=== PATIENT | male | born 1950 | race Caucasian/White ===

== ENCOUNTER → 2023-10-17 08:32 | Outpatient (REF) | payer BC, SELFPAY ==
[2023-10-17 11:51] LABS: ALT (SGPT) 42 U/L (0-50); AST (SGOT) 41 U/L (17-59); Blood Urea Nitrogen 16 mg/dl (9-20); Calcium 9.2 mg/dl (8.4-10.2); Carbon Dioxide 26 mmol/L (22-30); Chloride 100 mmol/L (98-107); Glucose 120 mg/dl (70-99); HDL Cholesterol 46 mg/dl; LDL Cholesterol, Calculated 46 mg/dl; Phosphorus 4.2 mg/dl (2.5-4.5); Potassium 4.3 mmol/L (3.5-5.1); Sodium 138 mmol/L (135-145); Total Cholesterol 106 mg/dl (50-199); Triglyceride 74 mg/dl (10-149); Very Low Density Lipoprotein 14 mg/dl (0-30); eGFR > 60.00
== END ==
LOC: HWLAB 08:32
PROVIDERS: ATTENDING PHYSICIAN Internal Medicine Cardiovascular Disease; FAMILY PHYSICIAN Family Medicine
DX: I10 Essential (primary) hypertension (principal); I73.9 Peripheral vascular disease, unspecified; I65.22 Occlusion and stenosis of left carotid artery
CPT/HCPCS: 36415; 80061; 80069; 84450; 84460

== ENCOUNTER → 2024-02-26 12:26 | Outpatient (REF) | payer BC, SELFPAY | LOC: RAD 12:26 | PROVIDERS: ATTENDING PHYSICIAN Surgery Vascular Surgery; FAMILY PHYSICIAN Family Medicine | DX: I71.40 Abdominal aortic aneurysm, without rupture, unspecified (principal); I73.9 Peripheral vascular disease, unspecified; I77.9 Disorder of arteries and arterioles, unspecified | CPT/HCPCS: 76770; 93880; 93922; 93925 ==

== ENCOUNTER → 2024-03-12 14:05 | Outpatient (REF) | payer BC, SELFPAY ==
[2024-03-14 10:38] LABS: Blood Urea Nitrogen 16 mg/dl (9-20); Calcium 9.6 mg/dl (8.4-10.2); Carbon Dioxide 25 mmol/L (22-30); Chloride 104 mmol/L (98-107); Glucose 109 mg/dl (70-99); Potassium 4.5 mmol/L (3.5-5.1); Sodium 137 mmol/L (135-145); eGFR > 60.00
== END ==
LOC: REG 14:05
PROVIDERS: ATTENDING PHYSICIAN Registered Nurse; FAMILY PHYSICIAN Family Medicine
DX: I71.40 Abdominal aortic aneurysm, without rupture, unspecified (principal); I73.9 Peripheral vascular disease, unspecified
CPT/HCPCS: 80048

== ENCOUNTER → 2024-03-19 10:35 | Outpatient (REF) | payer BC, SELFPAY | LOC: HWRAD 10:35 | PROVIDERS: ATTENDING PHYSICIAN Registered Nurse; FAMILY PHYSICIAN Family Medicine | DX: I71.40 Abdominal aortic aneurysm, without rupture, unspecified (principal); I73.9 Peripheral vascular disease, unspecified | CPT/HCPCS: 75635; Q9967 ==

== ENCOUNTER → 2024-04-16 11:30 | Outpatient (REF) | payer BC, SELFPAY | LOC: DHCBC/DCA 11:30 | PROVIDERS: ATTENDING PHYSICIAN Internal Medicine; FAMILY PHYSICIAN Student in an Organized Health Care Education/Training Program | DX: I10 Essential (primary) hypertension (principal); I73.9 Peripheral vascular disease, unspecified; I65.22 Occlusion and stenosis of left carotid artery; I71.43 Infrarenal abdominal aortic aneurysm, without rupture | CPT/HCPCS: 78452; 93017; A9500; J2785 ==

== ENCOUNTER → 2024-04-23 10:03 | Outpatient (REF) | payer BC, MEDICARE, SELFPAY | LOC: HWRCS 10:03 | PROVIDERS: ATTENDING PHYSICIAN Internal Medicine; FAMILY PHYSICIAN Family Medicine | DX: I10 Essential (primary) hypertension (principal); I73.9 Peripheral vascular disease, unspecified; I65.22 Occlusion and stenosis of left carotid artery; I71.43 Infrarenal abdominal aortic aneurysm, without rupture; Z01.10 Encounter for examination of ears and hearing without abnormal findings | CPT/HCPCS: 93306 ==

== ENCOUNTER 2024-05-09 08:01 | Inpatient (IN) | payer BC, MEDICARE, SELFPAY ==
[2024-05-06 09:12] VITALS: BMI 32.2
[2024-05-06 09:46] LABS: % Basophils 1.2 % (0-2); % Eosinophils 1.9 % (0-6); % Immature Granulocytes 0.3 % (0-0.5); % Monocytes 11.5 % (1.7-9.3); % Neutrophils 64.1 % (42.2-75.2); Absolute Basophils 0.1 10^3/uL (0-0.2); Absolute Eosinophils 0.1 10^3/uL (0-0.7); Absolute Lymphocytes 1.2 10^3/uL (1.2-3.4); Absolute Monocytes 0.7 10^3/uL (0.1-0.6); Absolute Neutrophils 3.8 10^3/uL (1.4-6.5); Hematocrit 40.6 % (39.0-52.0); Hemoglobin 13.9 g/dL (13.0-18.0); Mean Corp Hgb Conc. 34.2 g/dL (33.0-37.0); Mean Corpuscular Hgb 31.6 pg (27.0-31.0); Mean Corpuscular Volume 92.3 fL (80.0-94.0); Mean Platelet Volume 9.9 fL (7.4-10.4); Nucleated Red Blood Cells % 0 % (-); Platelet Count 248 10^3/uL (130-400); Red Cell Dist. Width 12.5 % (11.5-14.5); White Blood Cell Count 5.9 10^3/uL (4.8-10.8)
[2024-05-06 10:03] LABS: INR 1.05; PT 13.5 Sec (11.4-14.6)
[2024-05-06 10:04] LABS: APTT 35.7 Sec (23.4-35.0)
[2024-05-06 10:11] LABS: Blood Urea Nitrogen 12 mg/dl (9-20); Calcium 9.5 mg/dl (8.4-10.2); Carbon Dioxide 27 mmol/L (22-30); Chloride 99 mmol/L (98-107); Estimated Creatinine Clearance 79 ml/min; Glucose 116 mg/dl (70-99); Potassium 5.3 mmol/L (3.5-5.1); Sodium 139 mmol/L (135-145); eGFR > 60.00
[2024-05-09] VITALS (39 sets, daily range): BP systolic 112–180; BP diastolic 62–120; BMI 32.1
[2024-05-09] MEDS: PERIDEX 0.12% ORAL RINSE 15 ML PO (08:56)
[2024-05-09] MEDS: BACTROBAN NASAL 1 GRAM NASAL (08:56)
[2024-05-09] MEDS: NSS 315 IV (08:59)
--- NOTE | 2024-05-09 10:39 | W.SUR.PREOP ---
Pre-Operative Surgical Note
-
I have examined this patient prior to the performance of the scheduled procedure.
The patient's condition is unchanged from the time of the current History and
Physical and the patient is able to undergo the scheduled procedure.
[2024-05-09 12:03] LABS: ACT-LR - POC 311 Seconds (116-155)
[2024-05-09 13:02] LABS: ACT-LR - POC 239 Seconds (116-155)
--- NOTE | 2024-05-09 14:04 | W.SUR.POST ---
Surgical Immediate Post Op
Note
Pre Op Diagnosis: Abdominal aortic aneurysm
Post Op Diagnosis: Abdominal aortic aneurysm
Procedure Performed: EVAR + angioplasty + external iliac stent
Primary Surgeon: Onesimo Waddell MD
Secondary Surgeons: Dov Spaulding MD, PhD
Anesthesia: Per Anesthesia
Estimated Blood Loss: 50 cc
Fluids: Per Anesthesia
Drains/Shunts: Nonme
Specimens/Cultures: None
Doppler/Duplex/Angio (Y/N): Multiple angios
Complications: None
Operative Findings: Bilateral groin access, shockwave angioplasty to bilateral external iliacs, EVAR, bare metal stent to left external iliac, bilateral perc closure.
[2024-05-09 14:32] LABS: INR 1.15; PT 14.5 Sec (11.4-14.6)
[2024-05-09 14:33] LABS: APTT 39.3 Sec (23.4-35.0)
[2024-05-09 14:43] LABS: Blood Urea Nitrogen 15 mg/dl (9-20); Calcium 8.2 mg/dl (8.4-10.2); Carbon Dioxide 25 mmol/L (22-30); Chloride 103 mmol/L (98-107); Estimated Creatinine Clearance 98 ml/min; Glucose 114 mg/dl (70-99); Potassium 4.7 mmol/L (3.5-5.1); Sodium 136 mmol/L (135-145); eGFR > 60.00
[2024-05-09] MEDS: CARDENE 200 IV (14:57)
[2024-05-09] MEDS: PLAVIX 300 MG PO (14:57)
[2024-05-09] MEDS: NSS 1000 IV (14:57)
--- NOTE | 2024-05-09 15:07 | OR.RPT ---
Operative Report
Operative Report
Date of Operation: 05/09/2024
Pre Op Diagnosis: Infrarenal abdominal aortic aneurysm and associated calcified iliac occlusive disease bilaterally.
Post Op Diagnosis: Infrarenal abdominal aortic aneurysm and associated calcified iliac occlusive disease bilaterally.
Procedure:
1.) Endovascular aortic aneurysm repair using Endologix AFX device:
AFX main body 25�100/16�40
AFX suprarenal extension 28�75
2.) Intravascular lithotripsy to bilateral common iliac arteries and external iliac arteries (bilateral 10 mm x 30 mm L6 shockwave balloons)
3.) Balloon Angioplasty and Stenting of Left external iliac artery (9 mm x 57 mm express LD)
4.) Introduce wire and catheter to aorta from bilateral femoral artery access
5.) Ultrasound-Guided percutaneous access to the bilateral common femoral arteries
6.) Bilateral Pro-glide closure devices to the bilateral femoral arteries
Surgeon: Onesimo Waddell III, MD
Textile Worker: Dov Spaulding MD PhD PGY-6
Anesthesia: General
Complications: None
Estimated Blood Loss: 50 cc
History and Indications for Procedure: 73-year-old male with large infrarenal abdominal aortic aneurysm and associated calcified iliac occlusive disease.
Procedure in Detail: Wojciech Dominguez was correctly identified and placed supine on the operating table. After adequate induction of anesthesia the abdomen, pelvis and bilateral groins were positioned, prepped and draped in the usual sterile fashion.
Preoperative antibiotics were administered. A timeout procedure was performed with the nursing and anesthesia staff confirming the patients identity as well as the nature and laterality of the procedure.
Under ultrasound guidance, bilateral femoral artery sheath access was obtained. The arteries were patent. Ultrasound images of the femoral arteries were saved to the medical record. An 8 Fr sheath was placed into the right femoral access. A 7 Fr
sheath was placed into the left femoral access. The patient was systemically heparinized.
We obtained bilateral wire access to the abdominal aorta and then exchanged out for bilateral 0.018 wires. Due to the heavily calcified nature of the iliac arterial disease and in an effort to modify the calcium to achieve maximum luminal gain with
endovascular intervention I elected to proceed with intravascular lithotripsy. Bilateral 10 mm x 30 mm L6 shockwave balloon balloons were placed across the common iliac stenoses under roadmap guidance. Alternating rounds of lithotripsy pulse
delivery at sub-nominal pressure and angioplasty at nominal pressure was performed bilaterally across the stenoses. The bilateral common iliac arteries, iliac bifurcations and i external iliac arteries were treated with this technique. In between
rounds of pulse delivery and angioplasty the balloon was deflated and repositioned under roadmap guidance. All 300 pulses were delivered from each catheter.
Following this, an arteriogram demonstrated an excellent technical result with significant improvement in the common and external iliac arteries bilaterally compared to pretreatment. I exchanged the right 0.018 wire out for a Bentson wire. A
pre-close technique was then performed on the right femoral artery access with 2 offset Proglide closure devices. The sutures were secured and tucked under surgical towels for use at the end of the case. The 8 [place] sheath was replaced.
From the right femoral access an KMP catheter and Bentson wire were advanced to the proximal descending thoracic aorta. The wire was exchanged out through the KMP catheter for a Lunderquist wire. Over the Lunderquist wire in the right femoral access
I placed the AFX introducer sheath and advanced the radio-opaque sheath tip to the abdominal aorta. This advanced through the iliac system without any resistance. An En-Snare catheter was placed over a Bentson wire from the left femoral access and
advanced to the aortic bifurcation. The En-Snare was then advanced through to the catheter tip.
The contralateral limb wire of the AFX2 main body was introduced through the introducer sheath and advanced to the aortic bifurcation. The 25-100/16-40 AFX2 bifurcated main body was then loaded onto the Lunderquist wire and advanced through the
introducer sheath. The wire was snared from the contralateral side and pulled out the left femoral access and the AFX2 main body was advanced until the limbs were above the aortic bifurcation. The entire system was then pulled down onto the aortic
bifurcation. The main body was then deployed by pulling the control cord.
The contralateral limb was then deployed by pulling the yellow limb cover. Once this was completed I advanced a pigtail catheter over the contralateral limb wire until the tip was in contact with the wire lock. The contralateral limb was then pulled
as I advanced the pigtail up to release it from the wire lock. The wire was removed and the formed pigtail catheter was then advanced proximally.
The ipsilateral limb was deployed by pinning the inner core and retracting the AFX introducer sheath.
Through the introducer sheath I advanced a 28�75 supra renal endograft extension and performed an arteriogram to clearly visualize the renal arteries. The stent was positioned appropriately below the renal arteries and deployed under roadmap
guidance in the desired location.
The delivery system was removed. A Coda balloon was introduced and used to profile the proximal and distal seal zones as well as all areas of overlap. A 10 mm x 40 mm angioplasty balloon was used to profile the left iliac limb.
A retrograde sheath arteriogram was performed on the left to visualize the distal [place] iliac system. There was residual calcified disease at the iliac bifurcation and proximal to mid left external iliac artery. I treated this with a 9 mm x 57 mm
express LD stent with an excellent result.
A completion aortogram demonstrated an excellent technical result. The aneurysm was excluded. No endoleaks were seen. There was brisk flow through the stent and iliac limbs. The renal arteries were widely patent bilaterally. The iliac bifurcations
were preserved bilaterally.
Satisfied with this result we then concluded the procedure. A single Pro-glide closure device was utilized for the left femoral artery access. The Proglide sutures were secured bilaterally after removing the sheaths and wires. Protamine was
administered. Additional pressure was applied to the puncture sites bilaterally for 10 minutes. Hemostasis was achieved bilaterally.
Sterile dressings were applied.
The patient tolerated the procedure well and was taken to the PACU in stable condition.
Attestation: I was present and responsible for the entire procedure
Signed:
Onesimo Waddell III, MD
[facility] Vascular Surgery
[phone] (cell)
--- NOTE | 2024-05-09 15:50 | CON.INTV ---
Consultation
Consultation Request
Date/Time Consultation Requested: 05/09/2024
Date/Time Consultation Performed: 05/09/2024
Requesting Provider: Dr. Waddell
Performing Provider: Dr. Cuong Landis
Reason for Consultation: Status post EVAR, angioplasty plus external iliac stent
Medical History
-
History of Present Illness:
73-year-old man with history of atrial flutter status post ablation, history of lung cancer, abdominal aortic aneurysm, peripheral vascular disease, bilateral carotid disease who follows up with Dr. Waddell in the outpatient setting. Admitted to the
hospital for intervention of these enlarging aortic aneurysm. Admitted on 05/09/2024 and underwent EVAR also revascularization of the lower extremity.
Currently in the critical care unit. Stable hemodynamically
Pain is relatively controlled
Denies shortness of breath.
Outpatient records reviewed
Past Medical History
Past Medical History: Other (See assessment and plan)
Social History
Tobacco: Former Smoker ( quit in 2017)
Alcohol: Occasional
Drug: None
Personal:
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
Family History
Family History: Reviewed & Not Pertinent
Allergies / Home Medications
Allergies
Allergy/AdvReac Type Severity Reaction Status Date / Time
No Known Allergies Allergy Verified 05/09/24 09:01
Home Medications
�Medication �Instructions �Recorded �Confirmed �Last Taken �Type
aspirin 81 mg tablet,delayed 81 mg PO DAILY 11/02/20 05/09/24 05/09/24 07:30 History
release
metoprolol tartrate 25 mg tablet 12.5 mg PO BID 11/02/20 05/09/24 05/09/24 07:30 History
rosuvastatin 20 mg tablet 20 mg PO DAILY 11/02/20 05/09/24 05/08/24 10:00 History
ezetimibe 10 mg tablet 10 mg PO DAILY 04/30/24 05/09/24 05/08/24 10:00 History
Review of Systems
-
History Source: Patient
All other systems: Negative unless noted
Vitals / Labs / Diagnostic Testing
Vital Signs
Temp Pulse Resp BP Pulse Ox
97.0 F 80 16 141/75 96
05/09/24 14:00 05/09/24 15:26 05/09/24 15:26 05/09/24 15:26 05/09/24 15:10
Lab Data
05/09/24 14:11
Laboratory Results
05/09/24
14:11
PT 14.5
INR 1.15
APTT 39.3 H
Microbiology
05/06/24 09:22 Nose MRSA Screen - Final
No Methicillin Resistant Staphylococcus aureus isolated.
Diagnostic Testing:
Physical Exam
-
HEENT: Normocephalic
Cardiovascular: S1/S2
Respiratory: Clear and Non-Labored Respirations
GI: Soft and Non Distended
Neurology: Awake, Alert and No Motor Deficits
Skin: Warm and Other (Bilateral extremities are warm. Incision intact. No hematoma.)
General: Comfortable
Assessment
-
Status post EVAR-05/09/[address] Waddell
Intravascular lithotripsy to bilateral common iliac arteries and external iliac arteries
Balloon angioplasty and stent of left next internal iliac artery
Conditions present prior admission:
Atrial flutter status post ablation 2014
History of lung cancer
Abdominal aortic aneurysm
Peripheral arterial disease
Bilateral carotid artery disease
Left lower lobe lobectomy 2017
Assessment and plan:
Postoperative surgical intensive care unit monitoring
Supplemental oxygen as needed
Incentive spirometry
Aspiration precautions
Nebulizers if needed-currently not bronchospastic
Chest x-ray 05/06/2020 reviewed-no acute abnormalities of the chest
Neuro and vascular checks per protocol
Analgesia with narcotics, watch respiratory status closely
Vascular surgery following-correspondence and operative notes reviewed
Antiplatelet
Statin
Monitor blood pressure
Restart outpatient medication
Nicardipine as needed per protocol
Follow hemoglobin
Follow blood sugars
Insulin supplementation as needed
DVT prophylaxis-heparin subcu
Early nutrition-advance diet as tolerated
Early mobilization
--- NOTE | 2024-05-09 16:45 | PTCARENOTE ---
Received pt from PACU into ICU rm [id number] @ 1530. Drowsy, awakens to verbal stimuli, oriented x3. Neurovascular checks Q1H- see flow sheet. B/L LE pink/warm/+cap refill; sensation/movement intact; no tense edema/pain. L groin w 2x2 and tegaderm,
dressing c/d/i; site slightly swollen/tissue soft/no hematoma. R groin puncture site approximated w surgical adhesive, LITERACY TUTOR. SR w 1st degree AVB on monitor. SpO2 97% on 2LNC. Afebrile. +BS, abd soft/round/obese. Waddell catheter in place. Pt.
reported discomfort w catheter; catheter noted to be leaking. Balloon deflated/reinflated easily and catheter manipulated w sterile technique. Leaking from catheter remained. Vascular [facility] ALL SOURCE INTELLIGENCEMary, notified. # 18 R AC w NSS @ 80mL/hr and
Cardene gtt- see flow sheet. Pt. to lay flat until 1730, then HOB <30 degrees; bedrest overnight. Pt. updated on plan of care, verbalizes understanding. Instructed on how to report care concerns and call millard placed w in reach.
[2024-05-09] MEDS: PROTONIX 40 MG PO (17:48)
[2024-05-09] MEDS: HEPARIN 5000 UNITS SC (17:48)
--- NOTE | 2024-05-09 20:00 | PTCARENOTE ---
Resumed care of pt this evening. Received pt on cardene gtt infusing at 2.5 mg/hr via rt peripheral IV site. Pt A&Ox3, can make needs known, and can move all 4 extremities. Pt is in NSR rhythm on tele monitor, DP/PT pulses are present via doppler
bilaterally. Pt on RA satting at 94% pulse ox. Abdomen is soft non tender w/ active BS. Surgical dressings on both rt and left groin are C/D/I.
--- NOTE | 2024-05-09 21:00 | PTCARENOTE ---
Cardene gtt turned off at 2100.
[2024-05-09] MEDS: LOPRESSOR 12.5 MG PO (21:54)
[2024-05-09] MEDS: MORPHINE SULFATE 2 MG IV (21:55)
--- NOTE | 2024-05-09 23:00 | PTCARENOTE ---
Neurovascular checks unchanged. Pt c/o pain related to caicedo placement. PRN morphine administered by this RN.
[2024-05-10] VITALS (19 sets, daily range): BP systolic 91–156; BP diastolic 45–76; BMI 32.2
[2024-05-10] MEDS: HEPARIN 5000 UNITS SC ×2 (00:55→07:41)
[2024-05-10] MEDS: NSS 1000 IV (02:34)
[2024-05-10] MEDS: MORPHINE SULFATE 2 MG IV (02:43)
--- NOTE | 2024-05-10 04:30 | PTCARENOTE ---
Neurovascular checks unchanged.
[2024-05-10 06:54] LABS: Hematocrit 36.6 % (39.0-52.0); Hemoglobin 12.7 g/dL (13.0-18.0); Mean Corp Hgb Conc. 34.7 g/dL (33.0-37.0); Mean Corpuscular Hgb 31.5 pg (27.0-31.0); Mean Corpuscular Volume 90.8 fL (80.0-94.0); Platelet Count 234 10^3/uL (130-400); Red Blood Cell Count 4.03 10^6/uL (4.70-6.10); Red Cell Dist. Width 12.3 % (11.5-14.5); White Blood Cell Count 9.1 10^3/uL (4.8-10.8)
[2024-05-10 07:06] LABS: INR 1.14; PT 14.5 Sec (11.4-14.6)
[2024-05-10 07:07] LABS: APTT 37.2 Sec (23.4-35.0)
[2024-05-10 07:11] LABS: Blood Urea Nitrogen 14 mg/dl (9-20); Calcium 8.7 mg/dl (8.4-10.2); Carbon Dioxide 22 mmol/L (22-30); Chloride 101 mmol/L (98-107); Estimated Creatinine Clearance 98 ml/min; Glucose 122 mg/dl (70-99); Potassium 4.6 mmol/L (3.5-5.1); Sodium 137 mmol/L (135-145); eGFR > 60.00
[2024-05-10] MEDS: ASPIR LOW (ENTERIC COATED) 81 MG PO (07:41)
[2024-05-10] MEDS: PLAVIX 75 MG PO (07:41)
[2024-05-10] MEDS: PROTONIX 40 MG PO (07:41)
[2024-05-10] MEDS: CRESTOR 20 MG PO (07:41)
[2024-05-10] MEDS: LOPRESSOR 12.5 MG PO (07:41)
[2024-05-10] MEDS: ZETIA 10 MG PO (07:41)
--- NOTE | 2024-05-10 08:47 | W.PN.INTV ---
Today's Communication / Plan
Recommendations
Continue postoperative care
Discontinue IV fluids
Increase activity as able
Await for vascular evaluation
If not discharged transfer to [facility] later today.
If transferred out critical care team will sign off.
Assessment
-
Status post EVAR-05/09/[address] Waddell
Intravascular lithotripsy to bilateral common iliac arteries and external iliac arteries
Balloon angioplasty and stent of left next internal iliac artery
Conditions present prior admission:
Atrial flutter status post ablation 2014
History of lung cancer
Abdominal aortic aneurysm
Peripheral arterial disease
Bilateral carotid artery disease
Left lower lobe lobectomy 2017
Assessment and plan:
Postoperative day 1
Hemodynamically stable overnight
Neurologically intact
Incision without hematoma.
Pain is controlled
Increase activity as able-sitting out of bed eating breakfast independently.
Incentive spirometry
-
Hemoglobin is stable.
-
Continue with outpatient medication
Continue antiplatelets
-
Regular diet. Tolerating.
Discontinue IV fluids
Vascular surgery following-correspondence and operative notes reviewed hopefully discharge planning later today.
-
If not discharged transferred to [facility] later today.
Critical care team will sign off.
Subjective Dataa
Subjective Data
Date of Service:
Date of Service: May 10, 2024
Chief Complaint: Web Content Director Follow Up (Status post EVAR)
Subjective:
No overnight events
Denies shortness of breath
Denies nausea vomiting abdominal pain
Denies back pain
Review of Systems
Cardiopulmonary: Dyspnea (n) and Dyspnea on Exertion (n)
GI: Abdominal Pain (n) and Nausea (n)
Neuro: Headache (n) and Dizziness (n)
Objective Data
Data Reviewed
Vital Signs / I&O / Oxygen:
Vital Signs
Temp Pulse Resp BP Pulse Ox
96.9 F L 66 12 135/65 98
05/10/24 07:43 05/10/24 05:30 05/10/24 05:30 05/10/24 05:30 05/10/24 05:30
Intake and Output
05/09/24 05/10/24 05/11/24
06:59 06:59 06:59
Intake Total 2177.5 / 2177.5
Output Total 2249.8 / 2249.8
Balance -72.3 / -72.3
SaO2 98
Nasal Cannula flow liters per 2
minute
Physical Exam
General: Comfortable
HEENT: Normocephalic
Cardiovascular: S1-S2
Respiratory: Clear and Non-Labored Respirations
GI: Soft and Non Distended
Neurology: Awake and Alert
Skin: Other (Groin incision is intact. No significant hematoma.)
Labs/Micro/Reports
Lab Data
05/10/24 06:37
05/10/24 06:37
Laboratory Results
05/09/24 05/10/24
14:11 06:37
PT 14.5 14.5
INR 1.15 1.14
APTT 39.3 H 37.2 H
Microbiology
05/06/24 09:22 Nose MRSA Screen - Final
No Methicillin Resistant Staphylococcus aureus isolated.
--- NOTE | 2024-05-10 08:59 | W.PN.VS ---
Today's Communication / Plan
-
Pathway
Assessment/Plan
-
POD1 EVAR/IVL/iliac stenting
OOB
Diet
Poss home later today
Subjective Data
-
Date of Service: May 10, 2024
Looks great
NO complaints
Objective Data
-
Vital Signs
Temp Pulse Resp BP Pulse Ox
96.9 F L 66 12 135/65 98
05/10/24 07:43 05/10/24 05:30 05/10/24 05:30 05/10/24 05:30 05/10/24 05:30
Intake and Output
05/09/24 05/10/24 05/11/24
06:59 06:59 06:59
Intake Total 2177.5 / 2257.5 160 / 160
Output Total 2249.8 / 2249.8 170 / 170
Balance -72.3 / 7.7 -10 / -10
Intake:
Oral fluids 600 / 600
IV fluids (Total) 1577.5 / 1657.5 160 / 160
Cardene 62.5 / 62.5
nss 1515 / 1595 160 / 160
Output:
Urine, Waddell 2249.8 / 2249.8 170 / 170
Lab Results
05/10/24 06:37
05/10/24 06:37
Calcium 8.7 mg/dl (8.4-10.2) 05/10/24 06:37
Physical Exam
-
NAD
Alert/oriented
Non labored breathing
Abd soft
Groin sites clean/dry/soft
Feet pink/warm bilat
--- NOTE | 2024-05-10 09:12 | PTCARENOTE ---
Assumed care of pt. VSS, sinus rhythm with BBB and frequent PVCs. Assessment as noted. R groin site with dermabond, JACQUARD LACE WEAVER. L groin covered with gauze and tegaderm, CDI. Mild swelling present at L groin puncture site. Pulses present BLE. Waddell removed
without issue, pt voided immediately after. IVF stopped. OOB to chair with standby assistance. Tolerating low cholesterol diet.
--- NOTE | 2024-05-10 12:12 | PTCARENOTE ---
Discharge orders written. IV removed. Dr Waddell contacted about missing Plavix prescription. stated he would place electronic Rx. Discharge orders discussed. Pt to wheelchair and escorted to car with .
--- NOTE | 2024-05-10 12:21 | CM ---
CM following re: discharge planning.
Reviewed pt's chart, met with pt and pt's spouse at bedside.
Pt is a 73 year old male, admitted with primary dx of POD1 EVAR/IVL/iliac stenting.
Pt reports \\he lives with spouse in a 2SH, 1 step to enter, has 2 supportive children. 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 No DME, VN or SNF history.
Discharge order noted. pt is aware, expressed his agreement with discharge. Pt's secondary insurance is Medicare, IMM reviewed, placed on chart, pt has a copy. Pt's spouse stated she will transport pt home.
D/c plan: home with no after care VN needs. Spouse to transport.
--- NOTE | 2024-05-10 16:28 | W.DS.TRANS ---
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
-
Discharge Instructions:
Sleep Apnea Risk High
Discharge Diagnosis/Procedures Endovascular repair of abdominal aortic aneurysm
Diet No restrictions
Activity No strenuous activity
Driving Restrictions No driving for 1 week
Bathing Restrictions OK to Shower
Instructions:
Stand-Alone Forms: DC Instr - Vascular OR
Changes to Home Medications: No
Discharge Medications:
DC Medications w/original date entered in [employer]
aspirin 81 mg tablet,delayed release 81 mg PO DAILY 11/02/20
metoprolol tartrate 25 mg tablet 12.5 mg PO BID 11/02/20
rosuvastatin 20 mg tablet 20 mg PO DAILY 11/02/20
ezetimibe 10 mg tablet 10 mg PO DAILY 04/30/24
Home Medication Changes
Pending Results: No
--- NOTE | 2024-06-10 16:28 | W.DCSUMMARY ---
Discharge Summary
Discharge Data
Date of Admission: 05/09/24
Date of Discharge: 05/10/24
-
Pending Results: No
Hospital Course
Attending: Bairon
Consultants: Pulmonary medicine
Allergies: NKDA
Procedure with date: 05/09/24: Endovascular aortic aneurysm repair using Endologix AFX device, Intravascular lithotripsy to bilateral common iliac arteries and external iliac arteries (bilateral 10 mm x 30 mm L6 shockwave balloons), Balloon
Angioplasty and Stenting of Left external iliac artery (9 mm x 57 mm express LD) , Introduce wire and catheter to aorta from bilateral femoral artery access, Bilateral Pro-glide closure devices to the bilateral femoral arteries
History of present illness: The patient is an 73 -year-old male with multiple medical conditions including: carotid stenosis, atrial flutter status post ablation, history of lung cancer, abdominal aortic aneurysm, peripheral vascular disease,
bilateral carotid disease. Patient presented on 05/09/24 for scheduled procedure with Dr. Waddell. Patient presented at baseline health with no reports of recent illness or trauma.
Hospital Course: Briefly, the patient underwent scheduled EVAR without complications, and recovered in PACU. Following recovery phase one and two patient was transferred to intensive care unit per protocol for continued hemodynamic monitoring.
Cereal Supervisor consulted to aid in medical management from a critical care perspective. POD #1 (05/10/24) Patient neurologically intact, face symmetrical, and tolerating PO diet. Surgical groin sites clean, dry, and intact with suture line well
approximated and soft. No evidence of hematoma. Arterial line and IV fluids discontinued. Patient able to ambulate without difficulty or incident. Patient stable for discharge to home.
Prescriptions and follow up appointment are included in the DC summary seismic prospecting supervisor note. All instructions were given to the patient in both written and verbal form and the patient expressed understanding.
Discharge Plan
-
Patient Disposition: Home (Routine Discharge)
Discharge Diagnosis/Procedures: Endovascular repair of abdominal aortic aneurysm
Condition: Good
Diet: No restrictions
Activity: No strenuous activity
Driving Restrictions: No driving for 1 week
Bathing Restrictions: OK to Shower
Stand Alone Forms: DC Instr - Vascular OR
Referrals:
Rachel Villanueva PA-C [Specified Professional Personl] - 05/22/24 10:30 am (Vascular surgery follow-up)
Brendan Henderson DO [Family Provider] -
Prescriptions:
Continued
aspirin 81 MG tablet,delayed release (DR/EC)
81 mg PO DAILY
rosuvastatin 20 MG tablet
20 mg PO DAILY
metoprolol tartrate 12.5 MG tablet
12.5 mg PO BID
ezetimibe 10 mg Tablet
10 mg PO DAILY
Discharge Orders:
Discharge Patient (As Directed); Ordered 05/10/24
Ordered By: Onesimo Waddell III
Discharge Date and Time
Discharge Date/Time: 05/10/24 12:45
Print Language: SLOVENIAN
== END 2024-05-10 12:45 | disposition home or self-care (01) | DRG 269 ==
LOC: ICU 08:01
PROVIDERS: Nurse Practitioner Acute Care; ADMITTING PHYSICIAN Surgery Vascular Surgery; CONSULT PHYSICIAN Internal Medicine Critical Care Medicine; FAMILY PHYSICIAN Family Medicine
PROC: 04FJ3ZZ Fragmentation of Left External Iliac Artery, Percutaneous Approach (ICD-10-PCS; 2024-05-09)
PROC: 047J3DZ Dilation of Left External Iliac Artery with Intraluminal Device, Percutaneous Approach (ICD-10-PCS; 2024-05-09)
PROC: 04V03DZ Restriction of Abdominal Aorta with Intraluminal Device, Percutaneous Approach (ICD-10-PCS; 2024-05-09)
PROC: 04FD3ZZ Fragmentation of Left Common Iliac Artery, Percutaneous Approach (ICD-10-PCS; 2024-05-09)
PROC: 04FH3ZZ Fragmentation of Right External Iliac Artery, Percutaneous Approach (ICD-10-PCS; 2024-05-09)
PROC: 04FC3ZZ Fragmentation of Right Common Iliac Artery, Percutaneous Approach (ICD-10-PCS; 2024-05-09)
DX: I71.43 Infrarenal abdominal aortic aneurysm, without rupture (principal); I48.92 Unspecified atrial flutter; I70.8 Atherosclerosis of other arteries; I73.9 Peripheral vascular disease, unspecified; Z85.118 Personal history of other malignant neoplasm of bronchus and lung; Z87.891 Personal history of nicotine dependence; Z79.82 Long term (current) use of aspirin
CPT/HCPCS: 34705; 34709; 34713; 36415; 71046; 76937; 80048; 85025; 85027; 85610; 85730; 86850; 86900; 86901; 87070; C1725; C1760; C1769; C1773; C1876; C1894; C2628; C9765; Q9967

== ENCOUNTER → 2024-05-22 13:05 | Outpatient (REF) | payer BC, MEDICARE, SELFPAY ==
[2024-05-22 16:07] LABS: Blood Urea Nitrogen 11 mg/dl (9-20); Calcium 9.7 mg/dl (8.4-10.2); Carbon Dioxide 26 mmol/L (22-30); Chloride 99 mmol/L (98-107); Glucose 121 mg/dl (70-99); Potassium 4.7 mmol/L (3.5-5.1); Sodium 139 mmol/L (135-145); eGFR > 60.00
== END ==
LOC: HWLAB 13:05
PROVIDERS: ATTENDING PHYSICIAN Physician Assistant; FAMILY PHYSICIAN Family Medicine
DX: Z98.890 Other specified postprocedural states (principal)
CPT/HCPCS: 36415; 80048

== ENCOUNTER → 2024-06-03 12:00 | Outpatient (REF) | payer BC, MEDICARE, SELFPAY | LOC: HWRAD 12:00 | PROVIDERS: ATTENDING PHYSICIAN Physician Assistant; FAMILY PHYSICIAN Student in an Organized Health Care Education/Training Program | DX: I71.43 Infrarenal abdominal aortic aneurysm, without rupture (principal) | CPT/HCPCS: 74174; Q9967 ==

== ENCOUNTER → 2024-06-19 11:08 | Outpatient (REF) | payer BC, MEDICARE, SELFPAY | LOC: RAD 11:08 | PROVIDERS: ATTENDING PHYSICIAN Physician Assistant; FAMILY PHYSICIAN Family Medicine | DX: I70.0 Atherosclerosis of aorta (principal) | CPT/HCPCS: 93922 ==

== ENCOUNTER → 2025-01-06 10:30 | Outpatient (REF) | payer BC, MEDICARE, SELFPAY | LOC: DHVS 10:30 | PROVIDERS: ATTENDING PHYSICIAN Surgery Vascular Surgery | DX: I71.40 Abdominal aortic aneurysm, without rupture, unspecified (principal) | CPT/HCPCS: 76770; 93922 ==

== ENCOUNTER 2025-01-14 20:11 | Inpatient (IN) | payer BC, SELFPAY ==
[2025-01-14] VITALS (9 sets, daily range): BP systolic 98–151; BP diastolic 52–69; BMI 30.3
[2025-01-14 13:46] LABS: % Basophils 0.5 % (0-2); % Immature Granulocytes 0.3 % (0-0.5); % Lymphocytes 8.2 % (20.5-51.1); % Monocytes 14.1 % (1.7-9.3); % Neutrophils 76.9 % (42.2-75.2); Absolute Basophils 0.1 10^3/uL (0-0.2); Absolute Lymphocytes 0.8 10^3/uL (1.2-3.4); Absolute Monocytes 1.4 10^3/uL (0.1-0.6); Absolute Neutrophils 7.6 10^3/uL (1.4-6.5); Hematocrit 43.5 % (39.0-52.0); Hemoglobin 15.1 g/dL (13.0-18.0); Mean Corp Hgb Conc. 34.7 g/dL (33.0-37.0); Mean Corpuscular Hgb 32.4 pg (27.0-31.0); Mean Corpuscular Volume 93.3 fL (80.0-94.0); Mean Platelet Volume 9.8 fL (7.4-10.4); Nucleated Red Blood Cells % 0 % (-); Platelet Count 225 10^3/uL (130-400); Red Blood Cell Count 4.66 10^6/uL (4.70-6.10); Red Cell Dist. Width 12.7 % (11.5-14.5); White Blood Cell Count 9.9 10^3/uL (4.8-10.8)
[2025-01-14 14:10] LABS: Troponin I 0.016 ng/ml
--- NOTE | 2025-01-14 14:11 | ED.GENMED ---
History of Present Illness
General
Chief Complaint: Chest Pain
Source: patient and spouse ( at bedside)
Exam Limitations: none
Time Seen by Provider: 01/14/25 13:53
Nursing documentation reviewed up to this point in time: agreed with
History of Present Illness
History of Present Illness:
Patient is a 74-year-old male with history AAA s/p stent placement 05/09/2024, hypertension, hyperlipidemia presenting to the emergency department for evaluation of chest pain. Patient states last night around 9 PM he started with midsternal chest
pain which is worse when taking deep breath and when coughing. Patient had some difficulty sleeping last night secondary to pain. He reports a minimally productive cough w/ clear/white sputum. He denies any exertional component to symptoms. He
denies any true shortness of breath although states it is painful when he takes a deep breath. He denies any fever, chills, lightheadedness/dizziness. No pain in lower extremities.
Patient denies any known sick contacts. He does report a few days of nasal congestion.
Patient had a AAA stent placed in 05/03 and had scheduled follow-up with Dr. Lazcano this morning.
Patient has a family history of CAD.
Past History
Past History
ED Past Medical History: Other (nerve ds-received IVIG)
ED Past Surgical History: None
Social History
Tobacco: Smoker
Alcohol: Occasional
Drug: None
Personal:
Living: with family
Employment: Employed
Review of Systems
Review of Systems
Allergies reviewed?: Yes
All Other Systems: ROS reviewed and negative except as documented in HPI and ROS
Phy Exam
Physical Exam
Physical Exam:
Vitals: Patient's vital signs are stable. Afebrile
General: Patient is well appearing, no acute distress. Nontoxic appearing
Skin: Warm and dry, no rashes or lesions
Head: Normocephalic, atraumatic
Eyes: Sclera nonicteric. EOMs intact. No nystagmus.
Throat: Protecting airway
Neck: Normal ROM, no cervical spine tenderness, no meningismus
Cardiac: Regular rate and rhythm, no murmurs.
Pulm: Mildly increased respiratory effort. Lungs clear bilaterally without wheezing or rales.
.
Abdomen: Abdomen soft and nontender.
Extremities: No evidence of cyanosis or edema. Palpable DP pulse bilaterally
Neuro: AAOx3. Grossly intact.
Psychiatric: Normal affect.
Scores
Heart Score for Chest Pain Patients
STEMI patient?: No
History: Slightly or Non-Suspicious
ECG: Nonspecific Repolarization
Age: >/= 65 years
Risk Factors: >/= 3 Risk Factors or History of CAD
Troponin: </= Normal Limit
Heart Score for Chest Pain Patients: 5
Heart Score Risk: 20.3% MACE over next 6 weeks
Course
Orders/Labs/Results
Orders:
Orders
01/14/25 11:59
EKG [Electrocardiogram (*1)] Urgent
Reason for Study: Chest Pain
EKG- Treatment ONCE
01/14/25 13:37
Complete Blood Count/With Diff Urgent
Comprehensive Metabolic Panel Urgent
NT-proBNP Urgent
Comment: ADD ON
Troponin I Urgent
01/14/25 14:10
Add On- LAB Urgent
Tests Added?: pro- bnp
CR Chest - 2 Views Urgent
Comment:
Reason For Exam: cough, chest pain
01/14/25 14:29
COVID-19 Antigen Urgent
Source: Nasal Swab
D-Dimer Urgent
Influenza A+B Rapid Molecular Urgent
DEVORAH Source: Nasal Swab
Specimen Description:
01/14/25 15:03
CT Chest PE Study Urgent
Comment:
Reason For Exam: SOB, chest pain, elevated dimer
0.9% Sodium Chloride 500 ml [Nss] 500 ml IV BOLUS
01/14/25 16:28
Troponin I Urgent
01/14/25 16:36
EKG- Treatment ONCE
01/14/25 16:40
Electrocardiogram (*1) Urgent
Reason for Study: Chest Pain
EKG- Treatment ONCE
01/14/25 16:50
EKG [Electrocardiogram (*1)] Urgent
Reason for Study: Chest Pain
01/14/25 19:16
Admit/Transfer Patient As Directed
Co-Sign Provider:
Level of Care: Inpatient admission
Assign to:: Telemetry
Physician / Group: Mel
Diagnosis: Heart Failure
Reason for Telemetry: Acute Heart Failure
Date to Stop Telemetry: 01/17/25
Time to Stop Telemetry: 11:00
Reason for Hospitalization: IV diuretics
Expected length of stay greater than two midnights?: Yes
ELOS- Estimated Length of Stay in days: 3
I certify the patient meets the requirements for IP care: Yes
PRN Pain Medication Management As Directed
May give lesser potent ordered pain med per pt: Yes
preference::
Protocol:: Medication orders for pain may be administered in a
manner that supports deferring to patient preference
when the pt is:
- Requesting an ordered lesser potent pain medication.
Least to most potent pain medications are defined
as: acetaminophen < NSAID < tramadol < opioids
(morphine, oxycodone, hydromorphone).
- Requesting a lesser dose of the same medication IF
ORDERED.
- Requesting a less intrusive route of administration
if both routes are prescribed by the provider (PO <
IV).
01/14/25 19:24
Furosemide [Lasix] 40 mg IV NOW STA
01/14/25 19:29
Code Status As Directed
Resuscitation Status: Full Code
01/14/25 19:30
Electrocardiogram (*1) Urgent
Reason for Study: Chest Pain
EKG- Treatment ONCE
01/14/25 19:43
Troponin I Urgent
01/17/25 11:00
DC Protocol for Telemetry ONCE
Abnormal Lab Results
01/14/25 01/14/25
13:37 14:29
RBC 4.66 L 10^6/uL
(4.70-6.10)
MCH 32.4 H pg
(27.0-31.0)
Absolute Neuts (auto) 7.6 H 10^3/uL
(1.4-6.5)
Absolute Lymphs (auto) 0.8 L 10^3/uL
(1.2-3.4)
Absolute Monos (auto) 1.4 H 10^3/uL
(0.1-0.6)
Neutrophils % 76.9 H %
(42.2-75.2)
Lymphocytes % 8.2 L %
(20.5-51.1)
Monocytes % 14.1 H %
(1.7-9.3)
D-Dimer 1.74 H ug/mlFEU
(0.00-0.50)
Sodium 134 L mmol/L
(135-145)
Chloride 97 L mmol/L
(98-107)
Glucose 117 H mg/dl
(70-99)
Total Bilirubin 1.4 H mg/dl
(0.2-1.3)
Albumin 5.1 H g/dl
(3.5-5.0)
01/14/25 13:37
01/14/25 13:37
Vital Signs
Initial and Last Documented VS:
Initial Vital Signs
Temp Pulse Resp BP Pulse Ox
98.5 F 75 18 110/60 100
01/14/25 12:02 01/14/25 12:02 01/14/25 12:02 01/14/25 12:02 01/14/25 12:02
Last Documented Vital Signs
Temp Pulse Resp BP Pulse Ox
98.5 F 75 16 120/65 95
01/14/25 12:02 01/14/25 18:00 01/14/25 18:00 01/14/25 18:00 01/14/25 17:45
MDM/Problems Addressed
Differential Diagnosis Includes:
Not limited to: Bronchitis, pneumonia, viral illness, pulmonary embolism, acute coronary syndrome, congestive heart failure, etc.
MDM/Problems Addressed:
74-year-old male presenting with acute onset pleuritic chest pain and coughing yesterday evening at 9 PM. No true exertional components. No associated shortness of breath or lower extremity edema. Vitals and physical exam as above. Patient
appears well and in no apparent distress. Heart regular rate and rhythm. Lungs clear bilaterally. No evidence of lower extremity edema. Will check basic labs, chest x-ray. Symptoms do not seem quite anginal in nature and somewhat atypical
however there are some nonspecific ST elevations in V2/V3 on EKG.. Given associated cough, possibly secondary to underlying viral illness or pneumonia. Will check dimer to rule out pulmonary embolism. Will check proBNP. Will closely monitor and
reassess. Patient in no distress and has no pain at rest.
Update: Labs reviewed. Chemistry without any clinically significant abnormalities. Initial troponin 0.016. Will continue to trend. D-dimer was elevated at 1.74. Will proceed with CT chest. Chest x-ray shows mild increase in interstitial
markings without any evidence of focal pneumonia.
Update: Into reassess patient at bedside. He remains well-appearing and in no apparent respiratory distress. He has no pain at rest. He actually states that he coughed up a small amount of clear mucus while in the ED and feels somewhat better at
this time. Repeat troponin remains negative did increase to 0.[address] elevations in V2/V3. BNP elevated to 2000. Patient has no clinical evidence of fluid overload on exam today. CTA chest shows no evidence of PE however does
note severe plaque in coronary arteries. Also notes mild cardiomegaly and pulmonary hypertension. Case discussed with cardiology.
Chest pain atypical in nature and not consistent with typical anginal pain. Overall lower suspicion for acute coronary syndrome however given known CAD with CT findings and upward trending troponin�will admit for continued troponin trending and
further evaluation. Symptoms may be secondary to viral bronchitis. However, patient may need echo for further evaluation of possible congestive heart failure however I will defer diuresis to hospitalist as patient has no clinical evidence of fluid
overload on exam. Patient accepted to hospital service in stable condition.
Chronic conditions affecting care:
CAD, AAA s/p stent
Acute Exacerbation and/or Progression of Chronic Illness:
N/A
*Radiology
Radiology exam reviewed: preliminary read by ED provider (Chest x-ray reviewed by me-no acute abnormalities) and radiology read reviewed
*Pulse Oximetry
Patient hypoxic: no
*EKG
Interpreted by ED Provider?: Yes
EKG Intrepretation Date: 01/14/25
Interpretation: abnormal
Comparison EKG: changes noted
Heart Rate: 71
Rate: normal
Rhythm: sinus
[place]: normal axis
Interval: long QT
QRS Pattern: normal QRS
Ischemia: non-specific ST changes (Some ST elevations in V2, V3)
*Electromechanic Interpretation
Rate: normal
Interpretation: normal
Heart Rate: 74
Rhythm: sinus
*Critical Care Note
Total Time (30-74mins, 75-104mins- exclusive of procedures): Not Applicable
Patient Management
Discussion with other providers: Hospitalist and [employer] (Case discussed with cardiology)
Escalation/DeEscalation of care consider admission/obs:
Admit for continued troponin trending, cardiology eval
ED Attending Note
-
Portions of this chart may have been created with voice recognition software.� Occasional wrong word or��sound alike� substitutions may have occurred due to the inherent limitations of voice recognition software.
Discharge Plan
Departure
Patient Disposition: Admit
Date of Disposition: 01/14/25
Time of Disposition: 18:50
Presentation/result/management discussed w/ accepting MD/DO: Hospitalist
Discharge Problem:
Chest pain, CAD (coronary artery disease), Abnormal ECG
Prescriptions:
No Action
aspirin 81 MG tablet,delayed release (DR/EC)
81 mg PO DAILY
rosuvastatin 20 MG tablet
20 mg PO DAILY
metoprolol tartrate 12.5 MG tablet
12.5 mg PO BID
ezetimibe 10 mg Tablet
10 mg PO DAILY
Referrals:
Charo Rosas PA-C [Family Provider] -
Discharge Date and Time
Print Language: UKRAINIAN
[2025-01-14 14:41] LABS: Blood Urea Nitrogen 13 mg/dl (9-20); Chloride 97 mmol/L (98-107); Glucose 117 mg/dl (70-99); Potassium 4.8 mmol/L (3.5-5.1); Sodium 134 mmol/L (135-145); eGFR > 60.00
[2025-01-14 14:42] LABS: ALT (SGPT) 25 U/L (0-50); AST (SGOT) 28 U/L (17-59); Albumin 5.1 g/dl (3.5-5.0); Alkaline Phosphatase 57 U/L (38-126); Calcium 9.2 mg/dl (8.4-10.2); Carbon Dioxide 25 mmol/L (22-30); Total Bilirubin 1.4 mg/dl (0.2-1.3); Total Protein 7.7 g/dl (6.3-8.2)
[2025-01-14 14:52] LABS: D-Dimer 1.74 ug/mlFEU (0.00-0.50)
[2025-01-14 14:55] LABS: COVID-19 Antigen Negative (Negative)
[2025-01-14] MEDS: NSS 500 IV (15:17)
[2025-01-14 15:27] LABS: NT-proBNP 2040 pg/ml
[2025-01-14 17:12] LABS: Troponin I 0.021 ng/ml
--- NOTE | 2025-01-14 18:54 | HPS.HSE ---
Family Physician
-
Family Physician: Charo Rosas PA-C
Chief Complaint
-
Chest Pressure
History of Present Illness
Patient is a 74 y/o male past medical history of AAA s/p endovascular repair, peripheral arterial disease s/p left iliac stent and left carotid endarterectomy who presents with chest pressure. Patient reports last night after taking a shower he
developed chest pressure. He reports the pressure worsened particularly when he was taking deep breaths, but notes after bring up some phlegm the pressure improved. He continues with pressure at this time rating a 3-4 out of 10. He denies lower
extremity edema. He denies any prior history of coronary artery disease or heart failure. He is a former smoker but denies diagnosis of COPD.
Medical History
Past Medical History
Past Medical History: Reports Other
Additional Past Medical History:
Infrarenal Abdominal Aortic Aneurysm s/p Endovascular Repair
Peripheral Arterial Disease s/p Left External Iliac Stent, and Left Carotid Endarterectomy
Atrial Flutter s/p Ablation
Essential Hypertension
Hyperlipidemia
Lung Cancer
Past Surgical History: Reports Other
Additional Past Surgical History:
Endovascular Aortic Aneurysm Repair
Left External Iliac Stent
Multiple ESIs
Left Internal Carotid Endarterectomy
Left Upper Lung Lobectomy
Left Rotator Cuff Repair
Social History
Tobacco: Former Smoker (Quit in 2009 )
Alcohol: Daily (~6 beers per day)
Family History
Family History: Not pertinent
Allergies / Home Medications
Allergies reflects when Allergies were last updated in [facility].
Home Medications with original date entered in [facility]
Allergy/Medication List:
Allergies
Allergy/AdvReac Type Severity Reaction Status Date / Time
No Known Allergies Allergy Verified 01/14/25 12:06
Home Medications
aspirin 81 mg tablet,delayed release 81 mg PO DAILY 11/02/20
metoprolol tartrate 25 mg tablet 12.5 mg PO BID 11/02/20
rosuvastatin 20 mg tablet 20 mg PO DAILY 11/02/20
ezetimibe 10 mg tablet 10 mg PO DAILY 04/30/24
Review of Systems
-
History Source: Patient
A 12 point ROS was completed and negative except as noted: Yes
Constitutional: Denies Fever or Chills
Respiratory: Reports Cough and Trouble Breathing
Cardiac: Reports Chest Pain; Denies Palpitations
Abdomen/GI: Denies Abdominal Pain, Nausea, Vomiting, Diarrhea or Constipated
Physical Exam
Vital Signs
Vital Signs
Temp Pulse Resp BP Pulse Ox
98.5 F 75 16 120/65 95
01/14/25 12:02 01/14/25 18:00 01/14/25 18:00 01/14/25 18:00 01/14/25 17:45
Physical Exam
General: Comfortable and Conversant
HEENT: Anicteric and Moist mucous membranes
Respiratory: Clear and Non Labored Respirations
Cardiac: S1/S2 and Regular Rhythm
GI: Soft and Non Tender
Rectal: Deferred by Provider
Musculoskeletal: No Clubbing and No Cyanosis
Skin: Warm and Dry
Neuro: Awake, Alert, Oriented and Nonfocal/grossly intact
Psych: Calm
Laboratory Results
-
01/14/25 13:37
01/14/25 13:37
Laboratory Results
Total Bilirubin 1.4 mg/dl (0.2-1.3) H 01/14/25 13:37
AST 28 U/L (17-59) 01/14/25 13:37
ALT 25 U/L (0-50) 01/14/25 13:37
Alkaline Phosphatase 57 U/L (38-126) 01/14/25 13:37
Troponin I 0.021 ng/ml D 01/14/25 16:28
Data Reviewed
-
Lab Data: Labs Reviewed by me
Impression/Plan
-
Chest Pressure, suspect Acute Heart Failure
-CXR with increased interstitial markings suggestive of mild/early heart failure
-BNP elevated 2039
-Give Lasix 40mg IV x one dose and monitor for response
-Check Echocardiogram
-Trend troponin to rule out acute coronary syndrome
-Consult Cardiology
Suspect Undiagnosed COPD
-Chest CT with evidence of mild paraseptal emphysema in right upper lone, and mild bronchitis throughout right lung
-Patient without wheezing on exam, therefore do not feed this is an exacerbation
-Recommend follow-up with pulmonary as outpatient
Infrarenal Abdominal Aortic Aneurysm s/p Endovascular Repair
Peripheral Arterial Disease s/p Left External Iliac Stent, and Left Carotid Endarterectomy
-Continue aspirin
Essential Hypertension
-Continue metoprolol
Hyperlipidemia
-Continue ezetimibe and rosuvastatin
Alcohol Use Disorder
-Continue thiamine and folic acid
-Monitor for withdrawal
Hx Lung Cancer s/p Left Upper Lobectomy
Hx Atrial Flutter s/p Ablation
DVT proph: SC Heparin
Code Status: Full Code
--- NOTE | 2025-01-14 19:42 | W.PN.UPDATE ---
Update Note
Progress Note Update
This is an addendum to H&P written by Rose Lemus on 01/14/2025.� Patient seen examined independently with PA.
74-year-old male past medical history of abdominal aortic aneurysm status post and placement on 05/09/2024, PAD with stenting of the left external iliac artery, left carotid endarterectomy, atrial flutter status post ablation, lung cancer status post
left lobectomy, likely undiagnosed COPD former smoker, hypertension, hyperlipidemia presenting with chest pain worse with deep breathing and cough.
Vital signs normal.� Chest x-ray shows increased interstitial markings suggestive of mild early congestive heart failure.� EKG shows normal sinus rhythm, LVH.� There is subtle ST elevations in V2 and V3 which have been present previously and likely
repolarization abnormality.� Troponin 0.016 increased to 0.021.� Cardiac BNP of 2000.
CT PE chest shows mild cardiomegaly, mild pulmonary artery hypertension, mild bronchitis throughout the right lung, mild paraseptal emphysema.
Lungs sound clear.
Unclear presentation which is suggestive of acute CHF exacerbation.� 40 IV Lasix dose.� Trend troponins to rule out ACS although likely nonischemic myocardial injury.� Check echocardiogram.� Cardiology consulted.� Patient likely has underlying COPD
but lung examination is not supportive of this.
[2025-01-14] MEDS: LASIX 40 MG IV (19:45)
[2025-01-14 20:17] LABS: Troponin I 0.026 ng/ml
--- NOTE | 2025-01-14 21:21 | PTCARENOTE ---
Patient arrived from the ED via stretcher accompanied by spouse. Patient AAOx3, VSS, no complaints of pain. Patient steady on feet, no c/o light headedness or dizziness. Has a moist occasional productive cough. No chest pain. Patient oriented to the
room, updated on plan of care. Call millard is within reach.
[2025-01-14] MEDS: THIAMINE INJECTION 200 MG IV (21:40)
[2025-01-14] MEDS: LOPRESSOR 12.5 MG PO (21:40)
[2025-01-14] MEDS: HEPARIN 5000 UNITS SC (23:01)
[2025-01-15 03:14] VITALS: BP 130/69
[2025-01-15 05:50] VITALS: BMI 30.2
[2025-01-15 07:15] VITALS: BP 123/61
--- NOTE | 2025-01-15 08:25 | CON.CAR ---
Addendum entered and electronically signed by Oswaldo Pacheco MD 01/15/25 09:49:
I saw and examined the patient.
The PARTITION SETTER's note was reviewed and I agree with the note.
Comment: 74-year-old male well-known to me in the outpatient setting with a history of small cell lung cancer status postresection in 2018, PAD, recent EVAR and angioplasty of external iliac in 2023, daily alcohol, atrial flutter status post
ablation in 2014, AAA and CAD seen recent stress testing Who presents for evaluation of several days of a cough at times productive of sputum. With this, he has noticed chest pain when he is coughing. He denies any chest pain at rest. No chest
pressure was felt. No palpitations. No fever or chills. He is inactive at home. On exam he has a regular rate and rhythm with a normal S1-S2 no murmurs gallops were appreciated lungs were clear to auscultation bilaterally abdomen was soft
nontender nondistended, he is alert and oriented x 3. He is well nontoxic-appearing. Labs show troponin of 0.026 today, 0.2021 yesterday. EKG showed sinus rhythm LVH with strain. No change from his outside EKG 04/10/2024. CT scan personally
reviewed without evidence of pulmonary embolism. I do see a small air bronchogram on the right midlung. No evidence of effusion or volume overload. Overall, he presents with pleuritic chest pain in the setting of a cough for several days
productive of sputum. Findings most consistent with acute bronchitis. Will relay my suspicion to hospitalist. Otherwise, he has known extensive vasculopathy with PAD and CAD. He is on appropriate medical management. No acute symptoms to suggest
acute coronary syndrome. Echocardiogram has already been ordered. Will follow-up, but suspect this all to be a noncardiac issue. He should continue on his chronic medications for his PAD and CAD. He relates he does not follow-up with
pulmonology, I recommend that he seek outpatient consultation given likely diagnosis of COPD that has been untreated.
Thank you for allow me to participate in his care. No further cardiac recommendations at this time. Please call with questions.
Original Note:
Consultation
Consultation Request
Date/Time Consultation Requested: 01/14/252055
Date/Time Consultation Performed: 01/15/25824
Requesting Provider: Rose LEROY
Performing Provider: Luz ARANDA for Dr. Pacheco
Reason for Consultation: CHF
Medical History
-
Chief Complaint: chest discomfort
History of Present Illness:
74 y/o male with small cell lung cancer (surgery 2017), PAD, left CEA s/p 2017, AAA, atrial flutter s/p ablation 2014, daily ETOH, and AAA s/p EVAR/angioplasty/external iliac stent 2023. He is here for evaluation of chest discomfort, which started 2
nights ago. It is described as a pressure on his chest only when he coughs. He coughed up some phlegm (clear today) and is feeling completely better. No fever or chills. No SOB. Denies weight gain, orthopnea, edema. He did receive a dose of IV lasix
due to concern for CHF. He is in no distress at the time of my assessment. EKG and trops unremarkable to my review.
Past Medical History
Past Medical History: Arrhythmias, Cancer and Other (as above)
Social History
Tobacco: Former Smoker
Family History
Family History: Reviewed & Not Pertinent
Allergies / Home Medications
Allergy/AdvReac Type Severity Reaction Status Date / Time
No Known Allergies Allergy Verified 01/14/25 12:06
�Medication �Instructions �Recorded �Confirmed �Type
aspirin 81 mg tablet,delayed 81 mg PO DAILY 11/02/20 01/14/25 History
release
metoprolol tartrate 25 mg tablet 12.5 mg PO BID 11/02/20 01/14/25 History
rosuvastatin 20 mg tablet 20 mg PO DAILY 11/02/20 01/14/25 History
ezetimibe 10 mg tablet 10 mg PO DAILY 04/30/24 01/14/25 History
Review of Systems
-
History Source: Patient
All other systems: Negative unless noted
Respiratory: Cough
Cardiac: Chest Pain
Physical Exam
Vital Signs
Temp Pulse Resp BP Pulse Ox
98.0 F 71 18 130/69 98
01/15/25 03:14 01/15/25 03:14 01/15/25 03:14 01/15/25 03:14 01/15/25 03:14
Lab Results
Troponin I 0.026 ng/ml 01/14/25 19:43
Hvz-B-Tkogvkibdgt Pept 2040 pg/ml 01/14/25 13:37
Physical Exam
General: Well Developed, Well Nourished and No Apparent Distress
HEENT: Normocephalic and Anicteric
Respiratory: Clear and Non Labored Respirations
Cardiac: Regular Rhythm
Musculoskeletal: No Edema
Neuro: AO x 3
Psych: Calm
Impression / Plan
-
Cough with chest discomfort:
-does not sound anginal as is only noted with coughing. Now resolved after coughing up mucus. He did receive a dose of IV lasix, but does not appear volume overloaded to my assessment. Will obtain echo.
-trops and EKGs unremarkable overall. Tele stable in SR.
-otherwise, he is a former smoker with hx lung cancer with surgery and CT scan shows mild cardiomegaly, severe calcific atherosclerotic plaque in the coronary arteries, mild pulmonary arterial hypertension, previous left upper lobectomy with left
lung volume loss and mild right to left mediastinal shift, mild paraseptal emphysema in the right upper lobe, mild subpleural scarring throughout both lungs, mild bronchitis throughout the right lung. Management of pulm issues per primary.
Suspected CAD:
-patient does have history of abnormal stress test (2023- evidence for inferior infarct and eloina-infarct ischemia) and CT imaging reveals severe calcific atherosclerotic plaque in the coronary arteries.
-he has no anginal quality CP
-Continue ASA, statin, BB
HTN:
-stable
-continue BB
PAD:
-hx AAA s/p EVAR, hx LCEA, external iliac stent
-continue ASA, statin, Zetia
Hx aflutter s/p ablation 2015:
-stable in SR
Daily ETOH:
-4-5 beers per day. We discussed that abstinence is best, but he should at least cut back.
Data Reviewed
-
EKG: Tracing Personally Visualized and interpreted (NSR 72 BPM, similar to previous EKGs)
Radiology: Report Reviewed by me (CXR: Mild increase in interstitial markings suggests mild or early congestive heart failure. Please correlate clinically. There is a decrease in volume on the left from previous surgery.)
Labs: Labs Reviewed by me
[2025-01-15 08:51] LABS: Hematocrit 38.4 % (39.0-52.0); Hemoglobin 13.7 g/dL (13.0-18.0); Mean Corp Hgb Conc. 35.7 g/dL (33.0-37.0); Mean Corpuscular Hgb 33.3 pg (27.0-31.0); Mean Corpuscular Volume 93.2 fL (80.0-94.0); Mean Platelet Volume 10.4 fL (7.4-10.4); Platelet Count 207 10^3/uL (130-400); Red Blood Cell Count 4.12 10^6/uL (4.70-6.10); Red Cell Dist. Width 12.8 % (11.5-14.5); White Blood Cell Count 6.6 10^3/uL (4.8-10.8)
[2025-01-15] MEDS: HEPARIN 5000 UNITS SC (08:53)
[2025-01-15] MEDS: THIAMINE INJECTION 200 MG IV (08:54)
[2025-01-15] MEDS: ASPIR LOW (ENTERIC COATED) 81 MG PO (08:54)
[2025-01-15] MEDS: CRESTOR 20 MG PO (08:54)
[2025-01-15] MEDS: LOPRESSOR 12.5 MG PO (08:54)
[2025-01-15] MEDS: FOLVITE 1 MG PO (08:54)
[2025-01-15] MEDS: ZETIA 10 MG PO (08:54)
[2025-01-15 10:07] LABS: Blood Urea Nitrogen 17 mg/dl (9-20); Carbon Dioxide 23 mmol/L (22-30); Chloride 101 mmol/L (98-107); Estimated Creatinine Clearance 77 ml/min; Glucose 102 mg/dl (70-99); Magnesium 1.8 mg/dl (1.6-2.3); Potassium 4.2 mmol/L (3.5-5.1); Sodium 135 mmol/L (135-145); eGFR > 60.00
[2025-01-15 10:23] LABS: TSH Reflex To Free T4 2.12 uIU/ml (0.47-4.68)
[2025-01-15 11:15] VITALS: BP 101/41
--- NOTE | 2025-01-15 11:33 | W.PN.HOSP.TC ---
Addendum entered and electronically signed by Hal Gao MD 01/15/25 13:55:
Echo without any significant change. Remains chest pain-free. Stable on room air. Discussed echo results with patient. Eager to get discharged.
More than 30 minutes spent in discharge including
Final examination of the patient
Summarizing hospital stay
Instructions for continuing care to all relevant caregivers
Preparation of discharge records, prescriptions, and referral forms
Total time spent (in minutes): 52
Original Note:
Today's Communication/Plan
-
start bronchodilators
ECHO pending
plan for tentative dc later today
Assessment / Plan
Assessment / Plan
Atypical chest pain likely 2/2 cough 2/2 bronchitis
-not overt fluid overload. No edema. No PND or orthopnea
-BNP elevated 2039
-Receievd Lasix 40mg IV x one dose on admission. No further needs.
-Check Echocardiogram
-Trop flat. No significant bump.
-Cardiology correspondence noted
Suspect Undiagnosed COPD
-Chest CT with evidence of mild paraseptal emphysema in right upper lone, and mild bronchitis throughout right lung. Negative for PE.
-start duoneb for now. Inhalers prn on dc
-Recommend follow-up with pulmonary as outpatient
Infrarenal Abdominal Aortic Aneurysm s/p Endovascular Repair
Peripheral Arterial Disease s/p Left External Iliac Stent, and Left Carotid Endarterectomy
-Continue aspirin
Essential Hypertension
-Continue metoprolol
Hyperlipidemia
-Continue ezetimibe and rosuvastatin
Alcohol Use Disorder
-Continue thiamine and folic acid
-Monitor for withdrawal
Hx Lung Cancer s/p Left Upper Lobectomy
Hx Atrial Flutter s/p Ablation
DVT proph: SC Heparin
Code Status: Full Code
Anticipated Discharge: Within 24 hours
Subjective/Interval History
-
Date of Service: January 15, 2025
Denies any chest pain
have chest pain after episode of coughing-states of clear phelgm
went to vascular f/u and called cardiology office who recs to come into hospital
currently comfortable-no chest pain or sob
Objective Data
-
Labs:
Laboratory Results
01/15/25
08:01
WBC 6.6
Hgb 13.7
Hct 38.4 L
Plt Count 207
Sodium 135
Potassium 4.2
Chloride 101
Carbon Dioxide 23
BUN 17
Creatinine 0.9
Glucose 102 H
Calcium 9.0
Vital Signs:
Vital Signs
Temp Pulse Resp BP Pulse Ox
97.9 F 69 16 123/61 94
01/15/25 07:15 01/15/25 08:54 01/15/25 07:15 01/15/25 08:54 01/15/25 09:58
I&O
01/14/25 01/15/25 01/16/25
06:59 06:59 06:59
Intake Total 480 / 480
Output Total 650 / 650
Balance -170 / -170
Physical Exam
-
General: Well Developed and No Apparent Distress
HEENT: Normocephalic, Atraumatic and Moist Mucous Membranes
Respiratory: Clear to Auscultation
Cardiac: Regular Rhythm and S1/S2; Negative Murmur, Rub or Gallop
GI: Soft, Nontender, Nondistended and Normal Bowel Sounds; Negative Organomegaly
Rectal: Deferred by Provider
Musculoskeletal: No Clubbing, No Cyanosis and No Edema
Skin: Negative Rash
Neuro: Awake, Alert, Oriented, AO x 3 and Nonfocal/Grossly Intact
Psych: Calm
[2025-01-15] MEDS: DUONEB 3 ML INH (11:41)
--- NOTE | 2025-01-15 13:51 | W.DCSUMMARY ---
Discharge Summary
Discharge Data
Date of Admission: 01/14/25
Date of Discharge: 01/15/25
-
Pending Results: No
Hospital Course
74-year-old male past medical history of atherosclerotic vascular disease, abdominal aortic aneurysm status post repair, PAD status post stent left iliac, hypertension, hyperlipidemia, alcohol use disorder, lung cancer status post lobectomy, atrial
flutter status post ablation, is presented with atypical chest pain. Patient was concerned about chest pain when he saw vascular surgery in outpatient office and call his primary hand singer who recommend patient to come to the ER. In the ER
patient underwent CT chest found to be negative for pulmonary embolism. However did notice bronchitis. No focal infiltrates was noticed. White count was normal. Afebrile. Stable on room air. Troponin was trended and found to be negative.
Patient states of white phlegm. Chest pain has resolved. No shortness of breath. Remains afebrile. Patient underwent echocardiogram Normal left ventricular systolic function. LV ejection fraction is 55-60%. Mild basal inferior hypokinesis.
Thickened aortic valve with partial fusion of NCC/LCC. Aortic sclerosis without stenosis. Compared to 04/23/24: no significant change. Patient continues to denies of any chest discomfort but discussed case with cardiology okay for discharge.
Patient be discharged on inhalers and Mucinex. Recommend outpatient pulmonary follow-up and referral provided. Discussed with cardiology okay for discharge.
Discharge Plan
-
Patient Disposition: Home (Routine Discharge)
Discharge Diagnosis/Procedures: Atypical chest pain
bronchitis
Condition: Fair
Diet: Low Cholesterol
Activity: With assistance
Driving Restrictions: As prior to admission
Referrals:
Charo Rosas PA-C [Family Provider] - in less than 1 week
Cuong Reyes MD [Active] - None
Prescriptions:
New
albuterol sulfate 90 mcg/actuation HFA aerosol inhaler
2 puff inhalation Q6H PRN (Reason: shortness of breath or wheezing) Qty: 6.7 0RF
guaifenesin [Mucinex] 600 mg tablet extended release 12hr
600 mg PO BID Qty: 10 0RF
Continued
aspirin 81 MG tablet,delayed release (DR/EC)
81 mg PO DAILY
rosuvastatin 20 MG tablet
20 mg PO DAILY
metoprolol tartrate 12.5 MG tablet
12.5 mg PO BID
ezetimibe 10 mg Tablet
10 mg PO DAILY
Discharge Orders:
Discharge Patient (As Directed); Ordered 01/15/25
Ordered By: Hal Gao
Discharge Date and Time
Discharge Date/Time: 01/15/25 15:00
Print Language: WELSH
== END 2025-01-15 15:00 | disposition home or self-care (01) | DRG 203 ==
LOC: 4 EAST ACU 20:11
PROVIDERS: Emergency Medicine; Physician Assistant; Physician Assistant Medical; ADMITTING PHYSICIAN Hospitalist; ATTENDING PHYSICIAN Hospitalist; EMERGENCY PHYSICIAN Emergency Medicine; FAMILY PHYSICIAN Student in an Organized Health Care Education/Training Program; OTHER PHYSICIAN Internal Medicine Cardiovascular Disease
DX: J20.9 Acute bronchitis, unspecified (principal); R07.89 Other chest pain; F17.200 Nicotine dependence, unspecified, uncomplicated; I50.9 Heart failure, unspecified; I11.0 Hypertensive heart disease with heart failure; E78.5 Hyperlipidemia, unspecified; F10.10 Alcohol abuse, uncomplicated; Z79.82 Long term (current) use of aspirin; Z79.899 Other long term (current) drug therapy; Z11.52 Encounter for screening for COVID-19; I25.10 Atherosclerotic heart disease of native coronary artery without angina pectoris; I70.0 Atherosclerosis of aorta; I71.43 Infrarenal abdominal aortic aneurysm, without rupture; I73.9 Peripheral vascular disease, unspecified; J43.8 Other emphysema; Z86.79 Personal history of other diseases of the circulatory system; Z90.2 Acquired absence of lung [part of]
CPT/HCPCS: 71046; 71275; 80048; 80053; 83735; 83880; 84443; 84484; 85025; 85027; 85379; 87502; 87811; 93005; 93306; 94640; 96360; 99285; Q9967

== ENCOUNTER 2025-05-11 11:18 | Emergency (ER) | payer BC, SELFPAY ==
[2025-05-11] VITALS (7 sets, daily range): BP systolic 118–198; BP diastolic 78–158; BMI 32.3
--- NOTE | 2025-05-11 12:01 | ED.GENMED ---
History of Present Illness
General
Chief Complaint: Abdominal Pain
Source: patient and spouse
Time Seen by Provider: 05/11/25 11:38
History of Present Illness
History of Present Illness:
74-year-old male with past medical history of previous lung cancer status post partial lobectomy, infrarenal AAA without rupture, atrial fibrillation, hypertension, hyperlipidemia presenting to the emergency department for evaluation of left-sided
abdominal pain within the mid abdomen that has waxed and waned for the last few months with no specified etiology found noting that initially the symptoms seem to be a little bit higher up in possibly pleuritic prompting them to come to the
emergency department where they had workup and CT completed but without any etiologies found, symptoms continue to wax and wane up until about a week ago when they became more constant and noted to be worse with any type of movement. They went to
the primary care provider who thought the symptoms were more likely muscular but patient states yesterday evening the pain is now so severe to the point where they needed to come to the emergency department. No relief with OTC Motrin/ibuprofen. No
other associated symptoms including chest pain, shortness of breath, nausea, vomiting, fevers/chills or rigors, urinary symptoms, bowel changes, change in oral intake.
Past History
Past History
ED Past Medical History: Arrthythmia, Cancer, COPD, HTN, Hypercholesterolemia and Other (nerve ds-received IVIG)
ED Past Surgical History: Appendectomy, Cardiac and Other
Social History
Tobacco: Former smoker
Alcohol: Daily (4-5 beers daily)
Drug: None
Personal:
Living: with family
Employment: Employed
Review of Systems
Review of Systems
All Other Systems: ROS reviewed and negative except as documented in HPI and ROS
Phy Exam
Physical Exam
Physical Exam:
GENERAL: Alert , in no apparent distress at rest but appears in significant with any attempted movement
EYE: clear conjunctiva b/l
HEAD: NCAT
ENT: mmm.
CARDIAC: Regular rate and rhythm .
LUNGS: Clear breath sounds bilaterally, no acute respiratory distress, no wheezes/rales/rhonchi
ABDOMEN: Soft, without focal tenderness, no r/g, no cvat
NEUROLOGICAL: Alert and oriented
SKIN: Warm and dry, skin intact.
MUSCULOSKELETAL: well perfused.
PSYCH: Normal and appropriate interaction.
Scores
Heart Failure Risk
Heart Failure Risk Score: Not Applicable
Heart Score for Chest Pain Patients
STEMI patient?: Not applicable
Withdrawal Assessment of Alcohol
Withdrawal Assessment Completed?: Not applicable
Course
Orders/Labs/Results
Orders:
Orders
05/11/25 11:48
Electrocardiogram (*1) Urgent
Reason for Study: Abdominal Pain
CT Chest/abd/pelvis Angio W/wo Urgent
Comment:
Reason For Exam: known AAA, worsening abdominal pain
EKG- Treatment ONCE
05/11/25 11:56
Complete Blood Count/With Diff Urgent
Comprehensive Metabolic Panel Urgent
Lipase Urgent
PTT Urgent
Prothrombin Time Urgent
Troponin I Urgent
Abnormal Lab Results
05/11/25
11:56
RBC 4.33 L 10^6/uL
(4.70-6.10)
MCH 31.9 H pg
(27.0-31.0)
Absolute Lymphs (auto) 1.1 L 10^3/uL
(1.2-3.4)
Monocytes % 10.8 H %
(1.7-9.3)
BUN 8 L mg/dl
(9-20)
Glucose 104 H mg/dl
(70-99)
05/11/25 11:56
05/11/25 11:56
Vital Signs
Initial and Last Documented VS:
Initial Vital Signs
Temp Pulse Resp BP Pulse Ox
97.4 F 87 18 118/81 96
05/11/25 11:19 05/11/25 11:19 05/11/25 11:19 05/11/25 11:19 05/11/25 11:19
Last Documented Vital Signs
Temp Pulse Resp BP Pulse Ox
97.4 F 76 13 196/92 97
05/11/25 11:19 05/11/25 14:15 05/11/25 14:15 05/11/25 14:00 05/11/25 14:15
MDM/Problems Addressed
Differential Diagnosis Includes:
Complication with known AAA
Atypical ACS presentation
Valvular dysfunction
GERD/gastritis
Pancreatitis
Renal/ureteral colic
I have less concern for PE given patient is having these similar symptoms and had already been worked up for PE with a negative CTA of the chest
Abdominal wall muscle strain
MDM/Problems Addressed:
74-year-old male presenting to the emergency department for evaluation of left mid abdominal pain that has been gradually worsening last few months, worse over the last week but acutely worse over the last 24 hours. No specified etiologies found.
Patient with known AAA. Last reported measurements were around 4.7 x 4.5 cm. Will obtain CTA of the chest abdomen pelvis to further evaluate. Question GI etiology, patient did note drinking 4-5 beers per day so possible pancreatitis. Will check
EKG and troponin as well. Patient declining anything for pain as he states pain is minimal while he is laying still
Chronic conditions affecting care: Arrhythmia and Other (Known AAA)
*Radiology
Radiology exam reviewed: radiology read reviewed
*Pulse Oximetry
SaO2: 95
Oxygen Mode of Delivery: Room air
Patient hypoxic: no
*EKG
Heart Rate: 72
Rate: normal
Rhythm: sinus
[place]: normal axis
QRS Pattern: left vent hypertrophy
Ischemia: T-wave inversion (Leads III and aVF)
*Rock Crusher Interpretation
Rate: normal
Heart Rate: 76
Rhythm: sinus
*Critical Care Note
Total Time (30-74mins, 75-104mins- exclusive of procedures): Not Applicable
Data Reviewed
Review of Other/Old Records Reveals: Labs, Records and Radiology Studies
Source: patient and records
Patient Management
Escalation/DeEscalation of care consider admission/obs:
Patient CT scan is without any evidence for pathology within the chest abdomen or pelvis. At this time I do not have a specific etiology for patient's symptoms however doubt emergent pathology. At this time I recommended patient follow-up with
primary care provider. A prescription for Percocet was sent to patient's pharmacy to help with continued pain control. He will also take a stool softener with this as well. He is aware of return precautions to the ER.
ED Attending Note
-
Portions of this chart may have been created with voice recognition software.� Occasional wrong word or��sound alike� substitutions may have occurred due to the inherent limitations of voice recognition software.
Discharge Plan
Departure
Patient Disposition: Home (Routine Discharge)
Date of Disposition: 05/11/25
Time of Disposition: 14:29
Patient with high blood pressure during this ER visit?: Yes
Discharge Problem:
Abdominal pain
Instructions: Abdominal Pain
Prescriptions:
New
oxycodone-acetaminophen [Percocet] 5-325 mg tablet
1 tab PO Q6HPRN PRN (Reason: pain) Qty: 8 0RF
No Action
aspirin 81 MG tablet,delayed release (DR/EC)
81 mg PO DAILY
rosuvastatin 20 MG tablet
20 mg PO DAILY
metoprolol tartrate 12.5 MG tablet
12.5 mg PO BID
ezetimibe 10 mg Tablet
10 mg PO DAILY
albuterol sulfate 90 mcg/actuation HFA aerosol inhaler
2 puff inhalation Q6H PRN (Reason: shortness of breath or wheezing) Qty: 6.7 0RF
guaifenesin [Mucinex] 600 mg tablet extended release 12hr
600 mg PO BID Qty: 10 0RF
Referrals:
Charo Rosas PA-C [Family Provider, Family Practice]
Interventions
Interventions:
*Risk Screen - Suicide Last Done: 05/11/25 11:21
*General Assessment Last Done: 05/11/25 11:21
*Neglect/Abuse Screening Last Done: 05/11/25 11:21
*ED- Fall Risk Assessment Last Done: 05/11/25 11:56
*ED COVID-19 Vaccine History Last Done: 05/11/25 11:21
*Nursing Disposition Last Done: 05/11/25 14:52
DX-[place]-Nyygcsgeip Assessment Last Done: 05/11/25 11:56
Discharge Date and Time
Discharge Date/Time: 05/11/25 14:53
Print Language: EMIRATI
[2025-05-11 12:15] LABS: Hematocrit 40.6 % (39.0-52.0); Hemoglobin 13.8 g/dL (13.0-18.0); Mean Corp Hgb Conc. 34.0 g/dL (33.0-37.0); Mean Corpuscular Volume 93.8 fL (80.0-94.0); Nucleated Red Blood Cells % 0 % (-); Platelet Count 208 10^3/uL (130-400); Red Cell Dist. Width 12.2 % (11.5-14.5)
[2025-05-11 12:22] LABS: APTT 31.9 Sec (23.4-35.0); INR 1.06; PT 14.1 Sec (11.4-14.6)
[2025-05-11 12:33] LABS: ALT (SGPT) 25 U/L (0-50); AST (SGOT) 28 U/L (17-59); Albumin 4.4 g/dl (3.5-5.0); Alkaline Phosphatase 58 U/L (38-126); Blood Urea Nitrogen 8 mg/dl (9-20); Calcium 9.5 mg/dl (8.4-10.2); Carbon Dioxide 29 mmol/L (22-30); Chloride 101 mmol/L (98-107); Estimated Creatinine Clearance 94 ml/min; Glucose 104 mg/dl (70-99); Lipase 47 U/L (23-300); Potassium 4.4 mmol/L (3.5-5.1); Sodium 135 mmol/L (135-145); Total Protein 7.0 g/dl (6.3-8.2); eGFR > 60.00
[2025-05-11 12:44] LABS: Troponin I < 0.012 ng/ml
== END 2025-05-11 14:53 | disposition home or self-care (01) ==
LOC: EMR 11:18
PROVIDERS: Physician Assistant Medical; EMERGENCY PHYSICIAN Emergency Medicine; FAMILY PHYSICIAN Student in an Organized Health Care Education/Training Program
DX: R10.9 Unspecified abdominal pain (principal); I71.43 Infrarenal abdominal aortic aneurysm, without rupture; E78.00 Pure hypercholesterolemia, unspecified; I10 Essential (primary) hypertension; J44.9 Chronic obstructive pulmonary disease, unspecified; I48.91 Unspecified atrial fibrillation; Z85.118 Personal history of other malignant neoplasm of bronchus and lung; Z87.891 Personal history of nicotine dependence; Z90.2 Acquired absence of lung [part of]; Z90.49 Acquired absence of other specified parts of digestive tract
CPT/HCPCS: 99284; 71275; 74174; 80053; 83690; 84484; 85025; 85610; 85730; 93005; Q9967

== ENCOUNTER → 2025-06-05 12:41 | Outpatient (REF) | payer BC, MEDICARE, SELFPAY | LOC: RAD 12:41 | PROVIDERS: ATTENDING PHYSICIAN Registered Nurse; FAMILY PHYSICIAN Student in an Organized Health Care Education/Training Program; OTHER PHYSICIAN Internal Medicine Cardiovascular Disease; OTHER PHYSICIAN Surgery Vascular Surgery | DX: I73.9 Peripheral vascular disease, unspecified (principal) | CPT/HCPCS: 93922 ==

== ENCOUNTER → 2025-06-11 12:26 | Outpatient (REF) | payer BC, MEDICARE, SELFPAY | LOC: WOUND 12:26 | PROVIDERS: ATTENDING PHYSICIAN Surgery; FAMILY PHYSICIAN Student in an Organized Health Care Education/Training Program | DX: I87.312 Chronic venous hypertension (idiopathic) with ulcer of left lower extremity (principal); L97.222 Non-pressure chronic ulcer of left calf with fat layer exposed; C44.90 Unspecified malignant neoplasm of skin, unspecified; I73.9 Peripheral vascular disease, unspecified; I87.2 Venous insufficiency (chronic) (peripheral); Z87.891 Personal history of nicotine dependence | CPT/HCPCS: 11042; 88305; 99204 ==

== ENCOUNTER → 2025-07-13 12:21 | Outpatient (REF) | payer BC, SELFPAY | LOC: RAD 12:21 | PROVIDERS: ATTENDING PHYSICIAN Surgery Vascular Surgery; FAMILY PHYSICIAN Student in an Organized Health Care Education/Training Program | DX: I73.9 Peripheral vascular disease, unspecified (principal) | CPT/HCPCS: 93970 ==

== ENCOUNTER 2025-07-15 19:42 | Emergency (ER) | payer BC, SELFPAY ==
[2025-07-15 19:43] VITALS: BP 184/81
--- NOTE | 2025-07-15 21:44 | ED.GENMED ---
History of Present Illness
General
Chief Complaint: Wound Check/Suture Removal
Source: patient
Exam Limitations: none
Time Seen by Provider: 07/15/25 21:03
History of Present Illness
History of Present Illness:
74 year old male with bleeding wound from wound he has in his left arm from the Mohs procedure from yesterday. He is on a baby aspirin but no other anticoagulants. He denies pain. Has been oozing since the procedure. No other complaint
Past History
Past History
ED Past Medical History: Arrthythmia, Cancer, COPD, HTN, Hypercholesterolemia and Other (nerve ds-received IVIG)
ED Past Surgical History: Appendectomy, Cardiac and Other
Social History
Tobacco: Former smoker
Alcohol: Daily (4-5 beers daily)
Drug: None
Personal:
Living: with family
Employment: Employed
Phy Exam
Physical Exam
Physical Exam:
General: Well-appearing male no acute respiratory distress
Skin: Quarter sized wound posterior left arm superficial nature with mild oozing.
Course
Vital Signs
Initial and Last Documented VS:
Initial Vital Signs
Temp Pulse Resp BP Pulse Ox
98.2 F 76 16 184/81 99
07/15/25 19:43 07/15/25 19:43 07/15/25 19:43 07/15/25 19:43 07/15/25 19:43
Last Documented Vital Signs
Temp Pulse Resp BP Pulse Ox
98.2 F 76 16 184/81 99
07/15/25 19:43 07/15/25 19:43 07/15/25 19:43 07/15/25 19:43 07/15/25 21:45
MDM/Problems Addressed
Differential Diagnosis Includes:
The wound was cleansed with saline and anesthetized in a local fashion using 1% lidocaine with epinephrine. Any clot was removed and exposed to the base of the wound. The base of the wound was then cauterized with silver nitrate. The wound was
then observed for several minutes and there was hemostasis noted. Sterile nonstick dressing was applied. 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
*Pulse Oximetry
SaO2: 99
Oxygen Mode of Delivery: Room air
Patient hypoxic: no
*Critical Care Note
Total Time (30-74mins, 75-104mins- exclusive of procedures): Not Applicable
ED Attending Note
-
Portions of this chart may have been created with voice recognition software.� Occasional wrong word or��sound alike� substitutions may have occurred due to the inherent limitations of voice recognition software.
Discharge Plan
Departure
Patient Disposition: Home (Routine Discharge)
Date of Disposition: 07/15/25
Time of Disposition: 21:47
Patient with high blood pressure during this ER visit?: No
Discharge Problem:
Bleeding from wound
Instructions: Wound Care (DC)
Prescriptions:
No Action
aspirin 81 MG tablet,delayed release (DR/EC)
81 mg PO DAILY
rosuvastatin 20 MG tablet
20 mg PO DAILY
metoprolol tartrate 12.5 MG tablet
12.5 mg PO BID
ezetimibe 10 mg Tablet
10 mg PO DAILY
albuterol sulfate 90 mcg/actuation HFA aerosol inhaler
2 puff inhalation Q6H PRN (Reason: shortness of breath or wheezing) Qty: 6.7 0RF
guaifenesin [Mucinex] 600 mg tablet extended release 12hr
600 mg PO BID Qty: 10 0RF
oxycodone-acetaminophen [Percocet] 5-325 mg tablet
1 tab PO Q6HPRN PRN (Reason: pain) Qty: 8 0RF
Activity Restrictions/Additional Instructions:
Keep clean. Change dressing daily. Follow-up with your tin pot operator. Return if needed.
Interventions
Interventions:
*Risk Screen - Suicide Last Done: 07/15/25 19:43
*General Assessment Last Done: 07/15/25 21:44
*Neglect/Abuse Screening Last Done: 07/15/25 19:43
*ED- Fall Risk Assessment Last Done: 07/15/25 21:44
*ED COVID-19 Vaccine History Last Done: 07/15/25 21:44
*ED Influenza Vaccine History Last Done: 07/15/25 21:44
ED-Skin Assessment Last Done: 07/15/25 21:42
Discharge Date and Time
Print Language: HEBREW
== END 2025-07-15 21:53 | disposition home or self-care (01) ==
LOC: EMR 19:42
PROVIDERS: EMERGENCY PHYSICIAN Student in an Organized Health Care Education/Training Program
DX: L76.21 Postprocedural hemorrhage of skin and subcutaneous tissue following a dermatologic procedure (principal); Y83.8 Other surgical procedures as the cause of abnormal reaction of the patient, or of later complication, without mention of misadventure at the time of the procedure; J44.9 Chronic obstructive pulmonary disease, unspecified; I10 Essential (primary) hypertension; E78.00 Pure hypercholesterolemia, unspecified; Z79.82 Long term (current) use of aspirin; Z87.891 Personal history of nicotine dependence
CPT/HCPCS: 99282

== ENCOUNTER → 2025-07-22 11:04 | Outpatient (REF) | payer BC, SELFPAY ==
[2025-07-22 15:46] LABS: Hematocrit 41.2 % (39.0-52.0); Hemoglobin 13.5 g/dL (13.0-18.0); Mean Corp Hgb Conc. 32.8 g/dL (33.0-37.0); Mean Corpuscular Volume 96.0 fL (80.0-94.0); Nucleated Red Blood Cells % 0 % (-); Platelet Count 233 10^3/uL (130-400); Red Cell Dist. Width 12.7 % (11.5-14.5)
[2025-07-22 16:08] LABS: ALT (SGPT) 32 U/L (0-50); AST (SGOT) 31 U/L (17-59); Blood Urea Nitrogen 9 mg/dl (9-20); Calcium 9.2 mg/dl (8.4-10.2); Carbon Dioxide 29 mmol/L (22-30); Chloride 98 mmol/L (98-107); Glucose 110 mg/dl (70-99); HDL Cholesterol 56 mg/dl; LDL Cholesterol, Calculated 55 mg/dl; Potassium 4.3 mmol/L (3.5-5.1); Sodium 132 mmol/L (135-145); Very Low Density Lipoprotein 15 mg/dl (0-30); eGFR > 60.00
== END ==
LOC: HWLAB 11:04
PROVIDERS: ATTENDING PHYSICIAN Internal Medicine Cardiovascular Disease; FAMILY PHYSICIAN Student in an Organized Health Care Education/Training Program
DX: I10 Essential (primary) hypertension (principal); I73.9 Peripheral vascular disease, unspecified; I48.92 Unspecified atrial flutter
CPT/HCPCS: 36415; 80048; 80061; 84450; 84460; 85025